=== PATIENT | female | born 1990 | race Caucasian/White ===

== ENCOUNTER 2019-06-01 09:12 | Inpatient (IN) | payer BC ==
[~2019-06-01] VITALS: Ht 167.6 cm; Wt 85.0 kg
[2019-06-01] MEDS ORDERED: MISOPROSTOL 25 MCG TABLET ONE ×2 (20:12→20:42)
[2019-06-01] MEDS ORDERED: OXYTOCIN 30U/ 0.9% NaCL 500ML 500 ML ONE (20:12)
[2019-06-01] MEDS ORDERED: D5%-LACTATED RINGERS 1,000 ML IV SCH (20:12)
[2019-06-01] MEDS ORDERED: LIDOCAINE 1%, 20ML ONE (20:12)
[2019-06-01] MEDS ORDERED: OXYTOCIN 30U/ 0.9% NaCL 500ML 500 ML IV PRN (20:12)
[2019-06-01] MEDS ORDERED: OXYTOCIN 30U/ 0.9% NaCL 500ML 500 ML IV ONE (20:12)
[2019-06-01] MEDS ORDERED: NEWBORN KIT ONE (20:12)
[2019-06-01] MEDS ORDERED: MISOPROSTOL 200 MCG TABLET ONE (20:12)
[2019-06-01] MEDS ORDERED: TERBUTALINE 1 MG/ML, 1ML SQ PRN (20:30)
[2019-06-01] MEDS ORDERED: TERBUTALINE 1 MG/ML, 1ML IVPush PRN (20:30)
[2019-06-01] MEDS ORDERED: FENTANYL PF 100 MCG/2ML IV PRN (20:30)
[2019-06-01] MEDS ORDERED: FENTANYL PF 100 MCG/2ML IVPush PRN (20:30)
[2019-06-01 20:37] LABS: BASOPHILS # (AUTO) 0.03 x10^3/uL (0-0.1); BASOPHILS % (AUTO) 0 % (0-1); EOSINOPHILS # (AUTO) 0.07 x10^3/uL (0-0.4); EOSINOPHILS % (AUTO) 1 % (1-7); LYMPHOCYTES # (AUTO) 1.49 x10^3/uL (1-3.4); LYMPHOCYTES % (AUTO) 17 % (22-44); MD NO; MEAN CORPUSCULAR HEMOGLOBIN 26.8 pg (27.0-34.8); MEAN CORPUSCULAR HGB CONC 32.3 g/dL (32.4-35.8); MEAN CORPUSCULAR VOLUME 82.9 fL (80-100); MEAN PLATELET VOLUME 9.3 fL (7.4-10.4); MONOCYTES # (AUTO) 0.32 x10^3/uL (0.2-0.8); MONOCYTES % (AUTO) 4 % (2-9); NEUTROPHILS # (AUTO) 6.68 x10^3/uL (1.8-6.8); NEUTROPHILS % (AUTO) 78 % (42-75); PLATELET COUNT 301 x10^3/uL (130-400); RED BLOOD COUNT 4.15 x10^6/uL (3.82-5.3); RED CELL DISTRIBUTION WIDTH 16.4 % (9.6-15.2)
[2019-06-01] MEDS: MISOPROSTOL 25 MCG TABLET VG PRN (20:45)
[2019-06-02] MEDS ORDERED: MISOPROSTOL 25 MCG TABLET ONE ×2 (02:17→06:44)
[2019-06-02] MEDS: MISOPROSTOL 25 MCG TABLET VG PRN (02:24)
[2019-06-02] MEDS: LACTATED RINGERS 1,000 ML IV SCH ×3 (03:23→19:51)
[2019-06-02 07:30] VITALS: BP 114/73
[2019-06-02] MEDS ORDERED: FENTANYL/BUPIV./NS/PF 250 ML EPIDCONT SCH ×2 (08:08→11:51)
[2019-06-02] MEDS ORDERED: PREN1TAB60 PO (08:11)
[2019-06-02] MEDS ORDERED: ALBUTEROL INH (08:15)
[2019-06-02] MEDS ORDERED: LACTATED RINGERS 1,000 ML IVBOLUS PRN ×2 (08:30→12:00)
[2019-06-02] MEDS ORDERED: FENTANYL PF 500 MCG, BUPIVACAINE/PF 0.5%, 30ML 62.5 ML in SODIUM CHLORIDE 0.9% 177.5 ML EPIDCONT SCH (08:30)
[2019-06-02] MEDS ORDERED: BUPIVACAINE 0.25% ONE ×2 (11:53)
[2019-06-02] MEDS ORDERED: NALOXONE 0.4 MG/ML, 1ML IVPush PRN (12:00)
[2019-06-02] MEDS ORDERED: EPHEDRINE 50 MG/ML, 1ML IVPush PRN (12:00)
[2019-06-03] MEDS: LACTATED RINGERS 1,000 ML IV SCH ×5 (03:51→19:51)
[2019-06-03] MEDS ORDERED: ONDANSETRON 2MG/ML, 2ML ONE (09:34)
[2019-06-03] MEDS ORDERED: ONDANSETRON 2MG/ML, 2ML IVPush PRN (10:00)
[2019-06-03] MEDS ORDERED: LIDOCAINE/MPF 2%-EPI 1:200K, 20 ML ONE (14:09)
[2019-06-03] MEDS ORDERED: IBUPROFEN 600 MG TABLET ONE (16:13)
[2019-06-03] MEDS: OXYTOCIN 30U/ 0.9% NaCL 500ML 500 ML IV SCH (16:16)
[2019-06-03] MEDS: IBUPROFEN 600 MG TABLET PO PRN ×2 (16:26→23:33)
[2019-06-03] MEDS ORDERED: OXYcodone/APAP 5/325MG TABLET PO PRN (16:30)
[2019-06-03] MEDS ORDERED: METHYLERGONOVINE 0.2 MG/ML IM PRN (16:30)
[2019-06-03] MEDS ORDERED: OXYcodone IR 5MG TABLET PO PRN (16:30)
[2019-06-03] MEDS ORDERED: ONDANSETRON 2MG/ML, 2ML IV PRN (16:30)
[2019-06-03] MEDS ORDERED: SIMETHICONE 80 MG CHEW TAB PO PRN (16:30)
[2019-06-03] MEDS ORDERED: ACETAMINOPHEN 325 MG TABLET PO PRN (16:30)
[2019-06-03] MEDS ORDERED: MISOPROSTOL 200 MCG TABLET PR PRN (16:30)
[2019-06-03] MEDS ORDERED: CARBOPROST TROMETHAMINE 250 MCG/ML, 1ML IM PRN (16:30)
[2019-06-03] MEDS ORDERED: OXYTOCIN 30U/ 0.9% NaCL 500ML 500 ML ONE (17:01)
[2019-06-03 18:10] VITALS: BP 112/74
[2019-06-03 19:20] VITALS: BP 118/77
[2019-06-03] MEDS: DOCUSATE 100 MG CAPSULE PO PRN (23:33)
[2019-06-03 23:40] VITALS: BP 120/74
[2019-06-04] MEDS: OXYTOCIN 30U/ 0.9% NaCL 500ML 500 ML IV SCH ×2 (02:16→12:20)
[2019-06-04] MEDS: LACTATED RINGERS 1,000 ML IV SCH (03:51)
[2019-06-04 03:59] VITALS: BP 119/77
[2019-06-04 05:51] LABS: BASOPHILS # (AUTO) 0.02 x10^3/uL (0-0.1); BASOPHILS % (AUTO) 0 % (0-1); EOSINOPHILS # (AUTO) 0.05 x10^3/uL (0-0.4); EOSINOPHILS % (AUTO) 1 % (1-7); LYMPHOCYTES # (AUTO) 1.34 x10^3/uL (1-3.4); LYMPHOCYTES % (AUTO) 17 % (22-44); MD NO; MEAN CORPUSCULAR HEMOGLOBIN 26.6 pg (27.0-34.8); MEAN CORPUSCULAR HGB CONC 32.5 g/dL (32.4-35.8); MEAN CORPUSCULAR VOLUME 81.8 fL (80-100); MEAN PLATELET VOLUME 9.2 fL (7.4-10.4); MONOCYTES # (AUTO) 0.49 x10^3/uL (0.2-0.8); MONOCYTES % (AUTO) 6 % (2-9); NEUTROPHILS # (AUTO) 6.03 x10^3/uL (1.8-6.8); NEUTROPHILS % (AUTO) 76 % (42-75); PLATELET COUNT 211 x10^3/uL (130-400); RED BLOOD COUNT 3.55 x10^6/uL (3.82-5.3); RED CELL DISTRIBUTION WIDTH 16.7 % (9.6-15.2)
[2019-06-04] MEDS ORDERED: DIPH,PERTUSS(ACELL),TET VAC/PF NC IM-VACC ONE (06:00)
[2019-06-04] MEDS ORDERED: FLU VACC QS2019-20 36MOS UP/PF 0.5 ML IM-VACC ONE (06:00)
[2019-06-04] MEDS: IBUPROFEN 600 MG TABLET PO PRN ×2 (07:58→17:40)
[2019-06-04] MEDS: DOCUSATE 100 MG CAPSULE PO PRN (07:58)
[2019-06-04 08:20] VITALS: BP 115/74
[2019-06-04] MEDS ORDERED: PRENATAL VIT/IRON/FA 1 EACH TABLET PO SCH (09:00)
[2019-06-04 12:05] VITALS: BP 120/77
[2019-06-04] MEDS ORDERED: IBUP-1222 PO (16:15)
[2019-06-04] MEDS ORDERED: DOCU-131 PO (16:16)
[2019-06-04] MEDS ORDERED: FERR240T2 PO (16:17)
== END 2019-06-04 17:46 | disposition home or self-care (01) | DRG 807 ==
LOC: LDIP 20:08 → 2NW 06-03 18:09
PROVIDERS: ADMIT Obstetrics & Gynecology Maternal & Fetal Medicine; ATTEND Obstetrics & Gynecology Maternal & Fetal Medicine
PROC: 3E033VJ Introduction of Other Hormone into Peripheral Vein, Percutaneous Approach (ICD-10-PCS; 2019-06-01)
PROC: 0U7C7ZZ Dilation of Cervix, Via Natural or Artificial Opening (ICD-10-PCS; 2019-06-02)
PROC: 10E0XZZ Delivery of Products of Conception, External Approach (ICD-10-PCS; principal; 2019-06-03)
PROC: 3E0R3BZ Introduction of Anesthetic Agent into Spinal Canal, Percutaneous Approach (ICD-10-PCS; 2019-06-03)
PROC: 00HU33Z Insertion of Infusion Device into Spinal Canal, Percutaneous Approach (ICD-10-PCS; 2019-06-03)
DX: O69.81X0 Labor and delivery complicated by cord around neck, without compression, not applicable or unspecified (principal); Z37.0 Single live birth; D64.9 Anemia, unspecified; F32.9 Major depressive disorder, single episode, unspecified; O99.02 Anemia complicating childbirth; O99.52 Diseases of the respiratory system complicating childbirth; O99.344 Other mental disorders complicating childbirth; J45.909 Unspecified asthma, uncomplicated; Z3A.39 39 weeks gestation of pregnancy; Z23 Encounter for immunization
CPT/HCPCS: 36415; J7121; S0020; 85025; 86850; 86900; 90686; G0378; J2405; J3010; J3490; J2590; J7050; J7120